=== PATIENT | male | born 1940 | race Caucasian/White ===

== ENCOUNTER 2016-11-24 09:53 | Emergency (ER) | payer MEDICARE, OTHER ==
[2016-11-24 10:35] LABS: BASO % 0.2 % (0.2-1.2); EOS % 0.8 % (0.8-7.0); GRAN # 3.3 10_X3_uL (1.8-5.4); GRAN % 65.1 % (34.0-67.9); HEMATOCRIT 32.3 % (40-51); HEMOGLOBIN 10.5 g/dL (13.7-17.5); LYMPH # 1.4 10_X3_uL (1.3-3.6); LYMPH % 26.8 % (21.8-53.1); MEAN CORPUSCULAR HEMOGLOBIN 32.8 pg (27.0-33.0); MEAN CORPUSCULAR HGB CONC 32.5 g/dL (32.0-36.0); MEAN CORPUSCULAR VOLUME 100.9 fL (79-92); MONO # 0.4 10_X3_uL (0.3-0.8); MONO % 7.1 % (5.3-12.2); PLATELET COUNT 90 x10_3/uL (163-337); RED CELL DISTRIBUTION WIDTH 13.6 % (11.6-14.4)
[2016-11-24 10:51] LABS: CALCIUM 9.2 mg/dL (8.7-10.7); CARBON DIOXIDE 23 mmol/L (21-32); CREATINE KINASE 256 U/L (35-232); CREATININE 0.7 mg/dL (0.6-1.3); GLUCOSE,RANDOM 122 mg/dL (70-99); POTASSIUM 3.9 mmol/L (3.5-5.1); SODIUM 141 mmol/L (136-145)
[2016-11-24 10:52] LABS: BLOOD UREA NITROGEN 37 mg/dL (7-18)
== END 2016-11-24 11:41 | disposition home or self-care (01) ==
LOC: ER 09:53
PROVIDERS: Internal Medicine
DX: R53.81 Other malaise (principal); R20.0 Anesthesia of skin; I10 Essential (primary) hypertension; Z79.899 Other long term (current) drug therapy
CPT/HCPCS: 36415; 80048; 82550; 82553; 85025; 93005; 99284; 99284-25

== ENCOUNTER 2017-01-12 09:20 | Emergency (ER) | payer MEDICARE, OTHER ==
[2017-01-12 10:03] LABS: BASO % 0.2 % (0.2-1.2); EOS # 0.2 10_X3_uL (0.0-0.5); EOS % 3.1 % (0.8-7.0); GRAN # 2.3 10_X3_uL (1.8-5.4); GRAN % 47.9 % (34.0-67.9); HEMATOCRIT 30.1 % (40-51); HEMOGLOBIN 9.4 g/dL (13.7-17.5); LYMPH # 1.7 10_X3_uL (1.3-3.6); MEAN CORPUSCULAR HEMOGLOBIN 30.5 pg (27.0-33.0); MEAN CORPUSCULAR HGB CONC 31.2 g/dL (32.0-36.0); MEAN CORPUSCULAR VOLUME 97.7 fL (79-92); MEAN PLATELET VOLUME 11.1 fl (7.5-11.5); MONO # 0.6 10_X3_uL (0.3-0.8); MONO % 12.8 % (5.3-12.2); PLATELET COUNT 157 x10_3/uL (163-337); RED BLOOD COUNT 3.08 x10_6/uL (4.6-6.1); RED CELL DISTRIBUTION WIDTH 14.2 % (11.6-14.4); WHITE BLOOD COUNT 4.8 x10_3/uL (4.2-9.1)
[2017-01-12 10:05] LABS: BLOOD UREA NITROGEN 21 mg/dL (7-18); CALCIUM 9.1 mg/dL (8.7-10.7); CARBON DIOXIDE 24 mmol/L (21-32); CREATINE KINASE 248 U/L (35-232); CREATININE 0.8 mg/dL (0.6-1.3); GLUCOSE,RANDOM 100 mg/dL (70-99); POTASSIUM 4.1 mmol/L (3.5-5.1); SODIUM 145 mmol/L (136-145)
== END 2017-01-12 11:35 | disposition home or self-care (01) ==
LOC: ER 09:20
PROVIDERS: Internal Medicine
DX: R60.0 Localized edema (principal); E78.5 Hyperlipidemia, unspecified; I10 Essential (primary) hypertension; Z95.2 Presence of prosthetic heart valve; Z98.890 Other specified postprocedural states; Z79.899 Other long term (current) drug therapy; Z79.82 Long term (current) use of aspirin; Z79.1 Long term (current) use of non-steroidal anti-inflammatories (NSAID)
CPT/HCPCS: 36415; 71010; 80048; 82550; 82553; 83880; 85025; 93005; 96372; 99284; 99284-25